=== PATIENT | female | born 1940 | race Caucasian/White ===

== ENCOUNTER 2022-11-12 08:00 | Outpatient (CLI) | payer MEDICARE, OTHER ==
--- NOTE | 2022-11-12 20:19 | XRAY Report ---
PROCEDURE: Ribs w/PA Chest RT INDICATIONS: RIGHT SIDED RIB PAIN TECHNIQUE: 4 views of the right ribs were acquired, along with a single view chest. COMPARISON: None. FINDINGS: Surgical changes and devices: None. Bones and chest wall: No fractures or dislocations. Postoperative changes of the right shoulder. Deg enerative changes of the glenohumeral joint. Narrowing of the acromiohumeral interval consistent with rotator cuff pathology. No suspicious bony lesions. Overlying soft tissues appear unremarkable. Lungs and pleura: No pleural effusions or pneumothorax. Lungs appear clear. Mediastinum: Mediastinal contours appear normal. Heart size is normal. IMPRESSION: No right rib fracture identified. Reviewed by: Chano Kulkarni on 11/12/2022 7:18 PM [facility] Approved by: Chano Kulkarni on 11/12/2022 7:18 PM PHYLLIS Station ID: [id number]
== END 2022-11-12 23:59 | disposition home or self-care (01) ==
LOC: DI.S 08:00
PROVIDERS: ATTEND Physician Assistant
DX: R07.81 Pleurodynia (principal)